=== PATIENT | female | born 1940 | race African-American/Black ===

== ENCOUNTER 2022-01-14 09:37 | Observation (INO) | payer MEDICARE ==
[~2022-01-14] VITALS: Ht 165.1 cm; Wt 55.0 kg
[2022-01-14] VITALS (20 sets, daily range): BP systolic 153–199; BP diastolic 79–109
[~2022-01-14 09:37] MED LIST: AMLODIPINE10 MG PO; AMLODIPINE5 MG PO; LEVOTHYROXIN50 MC1 PO; METOPROL TAR25 M1 PO; METOPROL TAR50 MG PO
[2022-01-14 11:24] LABS: IMMATURE GRANULOCYTES 0.4 % (0.0-5.0); MEAN CELL VOLUME 99.7 fL CALC (80.0-100.0); MEAN CORPUSCULAR HGB 32.4 pG CALC (26.0-32.0); MEAN CORPUSCULAR HGB CONC 32.5 g/dL CAL (32.0-36.0); NEUT# 4.22 thou/uL (2.00-7.15); RED BLOOD COUNT 3.36 mill/uL (4.20-5.60); RED CELL DISTRI WIDTH 12.8 % (11.5-15.5)
[2022-01-14 11:29] LABS: HEMATOCRIT 33.5 % (37.0-47.0); HEMOGLOBIN 10.9 g/dl (12.0-16.0)
[2022-01-14 11:36] LABS: CREATININE 2.6 mg/dL (0.5-1.0); POTASSIUM 4.8 mmol/l (3.5-5.1); TOTAL PROTEIN 8.5 g/dL (6.3-8.2)
[2022-01-14 11:41] LABS: BILIRUBIN, TOTAL 0.8 mg/dL (0.0-1.4)
[2022-01-15] VITALS (11 sets, daily range): BP systolic 152–200; BP diastolic 62–109
[2022-01-15 05:32] LABS: HEMATOCRIT 31.6 % (37.0-47.0); HEMOGLOBIN 10.2 g/dl (12.0-16.0); MEAN CELL VOLUME 101.6 fL CALC (80.0-100.0); MEAN CORPUSCULAR HGB 32.8 pG CALC (26.0-32.0); MEAN CORPUSCULAR HGB CONC 32.3 g/dL CAL (32.0-36.0); RED BLOOD COUNT 3.11 mill/uL (4.20-5.60); RED CELL DISTRI WIDTH 12.8 % (11.5-15.5)
[2022-01-15 05:47] LABS: CREATININE 2.8 mg/dL (0.5-1.0); MAGNESIUM 2.2 mg/dL (1.6-2.3); POTASSIUM 4.5 mmol/l (3.5-5.1)
[2022-01-15 16:17] LABS: URINE BILIRUBIN - DIPSTICK NEGATIVE (NEGATIVE); URINE BLOOD DIPSTICK NEGATIVE (NEGATIVE); URINE COLOR YELLOW; URINE GLUCOSE - DIPSTICK NEGATIVE (NEGATIVE); URINE KETONE NEGATIVE (NEGATIVE); URINE LEUK ESTERASE SMALL (NEGATIVE); URINE NITRITE - DIPSTICK NEGATIVE (Negative); URINE PROTEIN - DIPSTICK TRACE mg/dL (NEG-TRACE); URINE SPECIFIC GRAVITY 1.025; URINE UROBILINOGEN - DIPSTICK 0.2 E.U./dL (0.2)
[2022-01-15 16:21] LABS: URINE RBC 0-2 RBC/hpf (0-5); URINE SQUAMOUS EPITHELIAL CELL FEW EPI/hpf (0-FEW)
[2022-01-16] VITALS (11 sets, daily range): BP systolic 113–216; BP diastolic 52–104
[2022-01-16 05:39] LABS: HEMATOCRIT 31.4 % (37.0-47.0); HEMOGLOBIN 10.2 g/dl (12.0-16.0); IMMATURE GRANULOCYTES 0.2 % (0.0-5.0); MEAN CELL VOLUME 99.4 fL CALC (80.0-100.0); MEAN CORPUSCULAR HGB 32.3 pG CALC (26.0-32.0); MEAN CORPUSCULAR HGB CONC 32.5 g/dL CAL (32.0-36.0); NEUT# 4.51 thou/uL (2.00-7.15); RED BLOOD COUNT 3.16 mill/uL (4.20-5.60); RED CELL DISTRI WIDTH 12.8 % (11.5-15.5)
[2022-01-16 06:13] LABS: ALBUMIN 4.2 g/dL (3.2-5.0); CREATININE 2.3 mg/dL (0.5-1.0); MAGNESIUM 2.1 mg/dL (1.6-2.3); POTASSIUM 3.8 mmol/l (3.5-5.1)
[2022-01-17 00:20] VITALS: BP 168/72
[2022-01-17 04:30] VITALS: BP 201/81
[2022-01-17 05:32] LABS: ALBUMIN 3.9 g/dL (3.2-5.0); CREATININE 1.7 mg/dL (0.5-1.0); POTASSIUM 4.1 mmol/l (3.5-5.1)
[2022-01-17 06:29] VITALS: BP 182/68
[2022-01-17] MEDS ORDERED: AMLODIPINE BESYL5 MG PO (10:18)
[2022-01-17] MEDS ORDERED: APRESOLINE50 MG PO (10:19)
[2022-01-17] MEDS ORDERED: NORMODYNE/TRAN100 MG PO (10:20)
[2022-01-17 10:46] VITALS: BP 179/66
[2022-01-17 15:44] VITALS: BP 145/71
== END 2022-01-17 17:17 | disposition home health service (06) ==
LOC: ED 09:37 → ED-I 12:42 → ED 13:58 → MS2 13:59
PROVIDERS: Emergency Medicine; Internal Medicine; Internal Medicine Nephrology; ADMIT Internal Medicine; ATTEND Internal Medicine
DX: R42 Dizziness and giddiness (principal); N17.9 Acute kidney failure, unspecified; E87.1 Hypo-osmolality and hyponatremia; E86.9 Volume depletion, unspecified; I12.9 Hypertensive chronic kidney disease with stage 1 through stage 4 chronic kidney disease, or unspecified chronic kidney disease; N18.4 Chronic kidney disease, stage 4 (severe); E83.52 Hypercalcemia; D64.9 Anemia, unspecified; T46.5X6A Underdosing of other antihypertensive drugs, initial encounter; Z91.128 Patient's intentional underdosing of medication regimen for other reason

== ENCOUNTER 2022-07-06 13:20 | Observation (INO) | payer MEDICARE ==
[2022-07-06] VITALS (9 sets, daily range): BP systolic 126–185; BP diastolic 57–84
[~2022-07-06] VITALS: Ht 165.1 cm; Wt 54.6 kg
--- NOTE | 2022-07-06 | NUR ---
PATIENT RESTING, NO APPARENT DISTRESSNOTED. RESPIRATIONS EVEN AND UNLABORED, RISE AND FALL OF CHEST NOTED. CALL LIGHT AND BEDSIDE TABLE WITHIN REACH. BED ALARM ON FOR SAFETY.
[~2022-07-06 13:20] MED LIST changes: +AMLODIPINE BESYL5 MG PO; +APRESOLINE50 MG PO; +HYDRALAZINE HYD25 MG PO; +LISINOPRIL20 M1 PO; +NORMODYNE/TRAN100 MG PO; +NORVASC10 M1 PO; +ZESTRIL10 M1 PO
--- NOTE | 2022-07-06 13:20 | NUR ---
PT TO ROOM VIA EMS.
[2022-07-06 13:58] LABS: BASO% 0.6 % (0-3); HEMATOCRIT 28.2 % (37.0-47.0); HEMOGLOBIN 8.5 g/dl (12.0-16.0); IMMATURE GRANULOCYTES 0.7 % (0.0-5.0); LYMPH% 35.9 % (15-41); MEAN CELL VOLUME 102.2 fL CALC (80.0-100.0); MEAN CORPUSCULAR HGB 30.8 pG CALC (26.0-32.0); MEAN CORPUSCULAR HGB CONC 30.1 g/dL CAL (32.0-36.0); MONO% 5.5 % (2-13); NEUT# 3.76 thou/uL (2.00-7.15); NEUT% 54.3 % (42-76); RED BLOOD COUNT 2.76 mill/uL (4.20-5.60); RED CELL DISTRI WIDTH 12.5 % (11.5-15.5)
[2022-07-06 14:16] LABS: ALBUMIN 4.5 g/dL (3.2-5.0); ALKALINE PHOSPHATASE 43 u/l (38-126); ANION GAP 15 (6-22 (CALC)); BILIRUBIN, TOTAL 0.4 mg/dL (0.02-1.3); BUN 34 mg/dL (8-23); BUN/CREATININE RATIO 15 (12-20 (CALC)); CARBON DIOXIDE 18 mmol/l (22-30); CHLORIDE 109 mmol/l (95-108); CREATININE 2.3 mg/dL (0.5-1.0); ETHYL ALCOHOL 0 mg/dl (0-30); GFR FOR AFR.AMER. 25 ML/MIN (>=60 (CALC)); GFR OTHER RACES 20 ML/MIN (>=60 (CALC)); INTERNATIONAL NORMALIZED RATIO 1.1 RATIO (0.7-1.3); POTASSIUM 4.3 mmol/l (3.5-5.1); PROTHROMBIN TIME 10.5 SECONDS (9.0-12.5); SGOT/AST 31 u/l (9-36); SODIUM 138 mmol/l (137-146); TOTAL PROTEIN 7.5 g/dL (6.3-8.2)
[2022-07-06 14:23] LABS: D-DIMER 26.5 mg/L (0.19-0.60)
[2022-07-06 16:18] LABS: URINE BILIRUBIN - DIPSTICK NEGATIVE (NEGATIVE); URINE BLOOD DIPSTICK NEGATIVE (NEGATIVE); URINE COLOR YELLOW; URINE GLUCOSE - DIPSTICK NEGATIVE (NEGATIVE); URINE KETONE NEGATIVE (NEGATIVE); URINE LEUK ESTERASE NEGATIVE (NEGATIVE); URINE PH 6.5 (4.5-8.0); URINE PROTEIN - DIPSTICK NEGATIVE (NEG-TRACE); URINE SPECIFIC GRAVITY 1.015; URINE UROBILINOGEN - DIPSTICK 0.2 E.U./dL (0.2)
[2022-07-06 16:19] LABS: URINE NITRITE - DIPSTICK NEGATIVE (Negative)
--- NOTE | 2022-07-06 21:30 | NUR ---
REPORT RECEIVED FROM Yarelis AMARAL RN
--- NOTE | 2022-07-06 21:38 | NUR ---
PT REPORT CALLED AND PT WILL BE TAKEN UP BY THE NURSE
--- NOTE | 2022-07-06 21:44 | NUR ---
PATIENT ARRIVED ON FLOOR ACCOMPANIED BY Yarelis RIZZO RN. PATIENT HESITANT TO CHANGE INTO GOWN, PATIENT STATES IT IS COLD AND SHE DOES NOT WANT TO. PATIENT REFUSING SKIN CHECK. VISITBLE SKIN OF THE FACE, NECK, FOREARMS, HANDS AND LOWER SHINS APPEARS DRY AND INTACT. CALL LIGHT AND BEDSIDE TABLE WTTHIN REACH, BED ALARM ON FOR SAFETY.
--- NOTE | 2022-07-06 21:59 | NUR ---
REPORT CALLED SARAHY HERNANDEZ. PATIENT DENIES ANY NEEDS. RN TRANSFERRED PATIENT UP TO ROOM. PT TRANSFERRED SELF TO NEW BED.
[2022-07-07] VITALS (11 sets, daily range): BP systolic 125–228; BP diastolic 57–95
[2022-07-07 05:21] LABS: BASO% 0.6 % (0-3); EOS% 4.3 % (0-8); HEMATOCRIT 24.7 % (37.0-47.0); HEMOGLOBIN 7.5 g/dl (12.0-16.0); IMMATURE GRANULOCYTES 0.2 % (0.0-5.0); LYMPH% 24.6 % (15-41); MEAN CELL VOLUME 102.9 fL CALC (80.0-100.0); MEAN CORPUSCULAR HGB 31.3 pG CALC (26.0-32.0); MEAN CORPUSCULAR HGB CONC 30.4 g/dL CAL (32.0-36.0); MONO% 7.1 % (2-13); NEUT# 3.11 thou/uL (2.00-7.15); NEUT% 63.2 % (42-76); RED BLOOD COUNT 2.4 mill/uL (4.20-5.60); RED CELL DISTRI WIDTH 12.5 % (11.5-15.5)
[2022-07-07 05:40] LABS: ALBUMIN 3.8 g/dL (3.2-5.0); BILIRUBIN, TOTAL 0.3 mg/dL (0.02-1.3); POTASSIUM 4.6 mmol/l (3.5-5.1); TOTAL PROTEIN 6.6 g/dL (6.3-8.2)
--- NOTE | 2022-07-07 06:25 | NUR ---
CALL FROM ED, PATIENT SUSTAINING HR BRADYCARDIC IN THE 30'S. TOLL TESTBOARD WORKER AT BEDSIDE, FOUND PATIENT ON THE FLOOR. RAPID RESPOSE CALLED. PATIENT HYPOTENSIVE, AND BRADYCARDIC, PATIENT HAS WET HERSELF AND IS LYING ON THE FLOOR, STATES SHE DOES NOT RECALL WHAT HAPPENED, ONLY THAT SHE WAS GETTING UP TO GO TO THE BATHROOM, DENIES HURTING, OR HITTING HER HEAD. PATIENT TRASNFERED TO BED, CLEANED UP, SKIN INTACT, SMALL SKIN TEAR NOTED ON TOP OF HER RIGHT FOOT, PER PATIENT THIS HAPPENED WHEN HE PASSED OUT ON HER DAUGHTER EARLIER. PATIENT WAS WEARING NON SKID SOCKS, AND BED ALARM WAS ACTIVATED BUT DID NOT GO OFF. PATIENT ACCU CHECK 81. PATIENT HANDED CALL LIGHT, NEW YELLOW NON SKID SOCKS PLACED ON PATIENT, BED ALARM ACTIVATED. LIGHTS ON GREEN INDICATING IT IS WORKING.
--- NOTE | 2022-07-07 06:41 | NUR ---
CALL TO Erma HASTINGS APRN, NOTIFIED OF FALL. NO NEW ORDERS AT THIS TIME.
--- NOTE | 2022-07-07 07:00 | NUR ---
RECEIVE REPORT FROM LAWSON RN. PATIENT ALERTA AND ORIENTED X3. STABLE AT THIS TIME. 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 BED ALARM ON. PATIENT IS EDUCATED ABOUD MEDICATIONS FOR TODAY AND NURSING PLAN. PT REFER UNDERSTAND. SAFETY AND FALL PRECAUTIONS IN PLACE. CALL LIGHT WITHIN IN REACH.
--- NOTE | 2022-07-07 10:36 | NUR ---
CONTACTED DR CHATMAN'S OFFICE IN REFERENCE TO A PHYSICIAN CONSULT. I SPOKE WITH SEUN AT 1036 HRS.
--- NOTE | 2022-07-07 16:06 | NUR ---
Patient stable at this time. Resting in bed. Safety and fall precautions in place. Call light within in reach
--- NOTE | 2022-07-07 19:00 | NUR ---
RECIEVED BEDSIDE REPORT. PT A/OX3 WITH REPORTED PERIODS OF FORGETFULNESS. RESPIRATIONS EVEN AND UNLABORED ON ROOM AIR. LUNG SOUNDS CLEAR. HEART RHYTHM NORMAL WITH TELE IN PLACE. BOWEL SOUNDS ACTIVE, PT REPORTS BM "THE OTHER DAY". NO DISTENTION NOTED. #20G LFA INFUSING WITH IVF PER ORDER, SITE PATENT. SKIN TEAR NOTED TO RIGHT ANKLE/FOOT, DRESSING REMAINS CDI. PT DENIES OF ANY PAINS. ALL SAFTEY PRECAUTIONS ARE IN PLACE WITH CALL LIGHT IN REACH AND BED ALARM ACTIVE.
--- NOTE | 2022-07-07 20:10 | NUR ---
SCHEDULED MEDICATION ADMINISTERED. ATTEMPTED TO COMPLETE ORTHOSTATIC BP, PT REFUSING AT THIS TIME.PT REQUEST TO NAPE FIRST. WILL ATTEMPT LATER
[2022-07-08] VITALS (11 sets, daily range): BP systolic 100–208; BP diastolic 55–89
--- NOTE | 2022-07-08 00:15 | NUR ---
PT SLEEPING IN SEMI FOWLERS POSITION. RESPIRATIONS EVEN AND UNLABORED ON ROOM AIR. TELE MONITORING IN PLACE. ELEVATED BP NOTED, NOT WITHIN APRESOLINE PARAMETERS. PT DENIES OF ANY PAINS OR DICOMFORTS. WARM BLANKET PROVIDED PER REQUEST. PT DENIES OF ANY NEEDS. ALL SAFTEY PRECAUTIONS ARE IN PLACE WITH CALL LIGHT IN REACH. BED ALARM ACTIVE.
--- NOTE | 2022-07-08 04:13 | NUR ---
ORTHOSTATIC BP COMPLETED AT THIS TIME, POSTIVE. LAYING 192/89, SITTING 130/67, STANDING 100/55. PT DENIES OF ANY DIZZINESS. PT ASSISTED BACK INTO BED. RESPIRATIONS EVEN AND UNLABORED ON ROOM AIR. TELE MONITORING IN PLACE. PT DENIES OF NEEDS AT THIS TIME. ALL SAFTEY PRECAUTIONS ARE IN PLACE WITH CALL LIGHT IN REACH.BED ALARM ACTIVE.
[2022-07-08 05:52] LABS: BASO% 0.6 % (0-3); EOS% 4.9 % (0-8); HEMATOCRIT 24.4 % (37.0-47.0); HEMOGLOBIN 7.5 g/dl (12.0-16.0); IMMATURE GRANULOCYTES 0.2 % (0.0-5.0); LYMPH% 31.6 % (15-41); MEAN CORPUSCULAR HGB 31.6 pG CALC (26.0-32.0); MEAN CORPUSCULAR HGB CONC 30.7 g/dL CAL (32.0-36.0); MONO% 7.5 % (2-13); NEUT# 2.59 thou/uL (2.00-7.15); NEUT% 55.2 % (42-76); RED BLOOD COUNT 2.37 mill/uL (4.20-5.60); RED CELL DISTRI WIDTH 12.6 % (11.5-15.5)
[2022-07-08 06:03] LABS: ALBUMIN 3.7 g/dL (3.2-5.0); CREATININE 1.9 mg/dL (0.5-1.0); POTASSIUM 4.7 mmol/l (3.5-5.1)
[2022-07-08 06:56] LABS: ALBUMIN 3.7 g/dL (3.2-5.0); BILIRUBIN, TOTAL 0.2 mg/dL (0.02-1.3); CREATININE 1.9 mg/dL (0.5-1.0); MAGNESIUM 1.8 mg/dL (1.6-2.3); POTASSIUM 4.7 mmol/l (3.5-5.1); TOTAL PROTEIN 6.3 g/dL (6.3-8.2)
--- NOTE | 2022-07-08 07:06 | NUR ---
PT RESTING IN LOW FOWLERS POSITION . A/O HEART RHYHTM ON TELE RESPIRATIONS ON ROOM AIR . IV SITE NOTED. NS INFUSING . PT BED ALARM ACTIVE. ALL SAFETY PRECAUTIONS IN PLACE WITH CALL LIGHT IN REACH.
--- NOTE | 2022-07-08 08:45 | NUR ---
PT RESTING IN SEMI FOWLERS POSITION PT REQUESTED WARM BLANKET WARM BLANKET PROVIDED. PT ORTHOSTATICS TAKEN LAYING TIME 0830 BP OF 208/86 HR 66 SITTING TIME BP OF 180/81 HR 68 STANDING TIME BP OF 126/57 HR 80 . TO BE CHARTED.
--- NOTE | 2022-07-08 11:35 | NUR ---
Discharge instructions given. Patient verbalizes understanding of same. Discharged in stable condition via Wheelchair to Home with staff. All belongings sent with pt. IV REMOVED TELE REMOVED
== END 2022-07-08 11:27 ==
LOC: ED 13:20 → ED-I 15:22 → ED 20:02 → MS2 20:03
PROVIDERS: Internal Medicine Nephrology; Nurse Practitioner; Nurse Practitioner Family; ADMIT Internal Medicine; ATTEND Internal Medicine
DX: I95.1 Orthostatic hypotension (principal); I12.9 Hypertensive chronic kidney disease with stage 1 through stage 4 chronic kidney disease, or unspecified chronic kidney disease; N18.4 Chronic kidney disease, stage 4 (severe); N17.9 Acute kidney failure, unspecified; D63.1 Anemia in chronic kidney disease; E86.9 Volume depletion, unspecified; E87.20 Acidosis, unspecified; N25.81 Secondary hyperparathyroidism of renal origin; Z86.73 Personal history of transient ischemic attack (TIA), and cerebral infarction without residual deficits
CPT/HCPCS: J1650; Q9967

== ENCOUNTER 2022-10-18 11:46 | Emergency (ER) | payer MEDICARE ==
[2022-10-18] VITALS (11 sets, daily range): BP systolic 234–270; BP diastolic 108–122
[~2022-10-18 11:46] MED LIST changes: +FERROUS SULF325 M3 PO; +LISINOPRIL10 MG PO
[2022-10-18] MEDS ORDERED: PREDNISONE20 MG PO (13:42)
[2022-10-18] MEDS ORDERED: METHOCARBAMOL500 MG PO (13:42)
== END 2022-10-18 14:15 | disposition home or self-care (01) ==
LOC: ED 11:46
DX: M54.50 Low back pain, unspecified (principal); I10 Essential (primary) hypertension; Z86.73 Personal history of transient ischemic attack (TIA), and cerebral infarction without residual deficits

== ENCOUNTER 2022-10-23 18:41 | Observation (INO) | payer MEDICARE ==
[~2022-10-23] VITALS: Ht 170.2 cm; Wt 51.0 kg
[~2022-10-23 18:41] MED LIST changes: +METHOCARBAMOL500 MG PO; +PREDNISONE20 MG PO
[2022-10-23 19:42] LABS: BASO% 0.7 % (0-3); EOS% 1.6 % (0-8); IMMATURE GRANULOCYTES 0.2 % (0.0-5.0); LYMPH% 19.1 % (15-41); MEAN CELL VOLUME 102.9 fL CALC (80.0-100.0); MEAN CORPUSCULAR HGB 31.9 pG CALC (26.0-32.0); MONO% 6.7 % (2-13); NEUT# 3.08 thou/uL (2.00-7.15); NEUT% 71.7 % (42-76); RED BLOOD COUNT 3.45 mill/uL (4.20-5.60); RED CELL DISTRI WIDTH 13.6 % (11.5-15.5)
[2022-10-23 19:43] LABS: HEMATOCRIT 35.5 % (37.0-47.0)
[2022-10-23 19:48] LABS: ALBUMIN 4.1 g/dL (3.2-5.0); ALKALINE PHOSPHATASE 41 u/l (38-126); ANION GAP 13 (6-22 (CALC)); BUN 28 mg/dL (8-23); BUN/CREATININE RATIO 12 (12-20 (CALC)); CARBON DIOXIDE 19 mmol/l (22-30); CHLORIDE 108 mmol/l (95-108); CREATININE 2.5 mg/dL (0.5-1.0); GFR FOR AFR.AMER. 22 ML/MIN (>=60 (CALC)); GFR OTHER RACES 19 ML/MIN (>=60 (CALC)); POTASSIUM 4.4 mmol/l (3.5-5.1); SGOT/AST 29 u/l (9-36); SODIUM 136 mmol/l (137-146); TOTAL PROTEIN 7.4 g/dL (6.3-8.2)
[2022-10-23 19:49] LABS: BILIRUBIN, TOTAL 0.6 mg/dL (0.02-1.3)
[2022-10-23 22:41] LABS: URINE BLOOD DIPSTICK Negative (NEGATIVE); URINE GLUCOSE - DIPSTICK Negative (NEGATIVE); URINE KETONE Trace mg/dL (NEGATIVE); URINE LEUK ESTERASE Negative (NEGATIVE); URINE NITRITE - DIPSTICK Negative (Negative); URINE PH 5.5 (4.5-8.0); URINE PROTEIN - DIPSTICK 30 mg/dL (NEG-TRACE); URINE UROBILINOGEN - DIPSTICK 0.2 E.U./dL (0.2)
[2022-10-23 22:49] LABS: URINE COLOR Yellow
[2022-10-23 22:56] LABS: URINE AMORPH SEDIMENT RARE hpf (NONE-FEW)
[2022-10-24] VITALS (18 sets, daily range): BP systolic 76–220; BP diastolic 34–90
[2022-10-24 12:03] LABS: CREATININE 2.1 mg/dL (0.5-1.0); POTASSIUM 4.4 mmol/l (3.5-5.1)
[2022-10-25] VITALS (9 sets, daily range): BP systolic 157–231; BP diastolic 64–93
[2022-10-25 06:11] LABS: BASO% 0.7 % (0-3); EOS% 2.2 % (0-8); HEMATOCRIT 33.6 % (37.0-47.0); HEMOGLOBIN 10.5 g/dl (12.0-16.0); IMMATURE GRANULOCYTES 0.2 % (0.0-5.0); LYMPH% 31.1 % (15-41); MEAN CELL VOLUME 102.4 fL CALC (80.0-100.0); MEAN CORPUSCULAR HGB CONC 31.3 g/dL CAL (32.0-36.0); MONO% 6.8 % (2-13); NEUT# 2.41 thou/uL (2.00-7.15); RED BLOOD COUNT 3.28 mill/uL (4.20-5.60); RED CELL DISTRI WIDTH 13.6 % (11.5-15.5)
[2022-10-25 06:23] LABS: ALBUMIN 3.6 g/dL (3.2-5.0); BILIRUBIN, TOTAL 0.7 mg/dL (0.02-1.3); CREATININE 2.1 mg/dL (0.5-1.0); POTASSIUM 4.2 mmol/l (3.5-5.1); TOTAL PROTEIN 6.5 g/dL (6.3-8.2)
[2022-10-26] VITALS (7 sets, daily range): BP systolic 134–198; BP diastolic 64–90
== END 2022-10-26 15:46 ==
LOC: ED 18:41 → ED-I 23:08 → ED 10-24 00:02 → MS2 10-24 00:03
PROVIDERS: Family Medicine; ADMIT Student in an Organized Health Care Education/Training Program; ATTEND Student in an Organized Health Care Education/Training Program
DX: N17.9 Acute kidney failure, unspecified (principal); I12.9 Hypertensive chronic kidney disease with stage 1 through stage 4 chronic kidney disease, or unspecified chronic kidney disease; N18.4 Chronic kidney disease, stage 4 (severe); R62.7 Adult failure to thrive; E86.9 Volume depletion, unspecified; D63.1 Anemia in chronic kidney disease; E86.0 Dehydration; E87.20 Acidosis, unspecified; N25.81 Secondary hyperparathyroidism of renal origin; Z91.81 History of falling; E87.1 Hypo-osmolality and hyponatremia; Z86.73 Personal history of transient ischemic attack (TIA), and cerebral infarction without residual deficits; Z20.822 Contact with and (suspected) exposure to COVID-19

== ENCOUNTER 2023-03-09 11:11 | Emergency (ER) | payer MEDICARE ==
[~2023-03-09] VITALS: Ht 162.6 cm; Wt 58.9 kg
[2023-03-09] VITALS (51 sets, daily range): BP systolic 121–237; BP diastolic 66–120
[~2023-03-09 11:11] MED LIST changes: +TRAZODONE50 MG PO
[2023-03-09 11:46] LABS: BASO% 0.5 % (0-3); HEMATOCRIT 30.8 % (37.0-47.0); HEMOGLOBIN 9.7 g/dl (12.0-16.0); IMMATURE GRANULOCYTES 0.4 % (0.0-5.0); MEAN CELL VOLUME 100.7 fL CALC (80.0-100.0); MEAN CORPUSCULAR HGB 31.7 pG CALC (26.0-32.0); MEAN CORPUSCULAR HGB CONC 31.5 g/dL CAL (32.0-36.0); MONO% 3.9 % (2-13); NEUT# 6.28 thou/uL (2.00-7.15); NEUT% 78.2 % (42-76); RED BLOOD COUNT 3.06 mill/uL (4.20-5.60); RED CELL DISTRI WIDTH 12.9 % (11.5-15.5)
[2023-03-09 12:05] LABS: ALBUMIN 3.9 g/dL (3.2-5.0); ALKALINE PHOSPHATASE 42 u/l (38-126); ANION GAP 13 (6-22 (CALC)); BILIRUBIN, TOTAL 0.5 mg/dL (0.02-1.3); BUN 29 mg/dL (8-23); BUN/CREATININE RATIO 14 (12-20 (CALC)); CARBON DIOXIDE 18 mmol/l (22-30); CHLORIDE 110 mmol/l (95-108); CREATININE 2.1 mg/dL (0.5-1.0); GFR FOR AFR.AMER. 27 ML/MIN (>=60 (CALC)); GFR OTHER RACES 23 ML/MIN (>=60 (CALC)); LIPASE 112 u/l (23-300); POTASSIUM 4.6 mmol/l (3.5-5.1); SGOT/AST 24 u/l (9-36); SODIUM 137 mmol/l (137-146); TOTAL PROTEIN 7.1 g/dL (6.3-8.2)
== END 2023-03-09 16:25 ==
LOC: ED 11:11
PROVIDERS: Family Medicine
DX: I61.3 Nontraumatic intracerebral hemorrhage in brain stem (principal); R53.1 Weakness; I10 Essential (primary) hypertension; Z20.822 Contact with and (suspected) exposure to COVID-19
CPT/HCPCS: J1953